=== PATIENT | female | born 1995 | race Two or more races ===

== ENCOUNTER 2020-03-30 16:31 | Emergency (ER) | payer SELFPAY ==
[~2020-03-30] VITALS: Ht 167.6 cm; Wt 76.0 kg
[2020-03-30 16:33] VITALS: BP 119/81
[2020-03-30] MEDS ORDERED: HYDROcodone/APAP 5/325 TABLET PO ONE (17:00)
[2020-03-30] MEDS ORDERED: HYDROcodone/APAP 5/325 TABLET ONE (17:21)
== END 2020-03-30 17:43 | disposition home or self-care (01) ==
LOC: ED 17:25
DX: K04.7 Periapical abscess without sinus (principal); K02.9 Dental caries, unspecified; F17.200 Nicotine dependence, unspecified, uncomplicated
CPT/HCPCS: 99283

== ENCOUNTER 2020-04-23 19:52 | Emergency (ER) | payer OTHER ==
[~2020-04-23] VITALS: Ht 170.2 cm; Wt 75.3 kg
[2020-04-23 19:57] VITALS: BP 138/79
[2020-04-23] MEDS ORDERED: HYDROcodone/APAP 5/325 TABLET PO ONE (20:30)
[2020-04-23] MEDS ORDERED: HYDROcodone/APAP 5/325 TABLET ONE (20:37)
== END 2020-04-23 20:59 | disposition home or self-care (01) ==
LOC: ED 20:20
DX: K08.89 Other specified disorders of teeth and supporting structures (principal); J02.0 Streptococcal pharyngitis; F17.210 Nicotine dependence, cigarettes, uncomplicated
CPT/HCPCS: 64400; 99284